=== PATIENT | female | born 1985 | race Caucasian/White ===

== ENCOUNTER 2019-09-10 23:45 | Emergency (ER) | payer BC ==
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
[2019-09-11 00:29] LABS: CHLORIDE,CL 103 mEq/L (98-106); SODIUM,NA 139 mEq/L (136-145)
[2019-09-11] MEDS: Ketorolac 60 MG/2 ML SDV IM ONE (00:31)
[2019-09-11] MEDS: Ondansetron 4 MG Tab.DIS PO ONE (00:33)
[2019-09-11] MEDS: Iopamidol 755 Mg/ML 100 ML Bottle IVPUSH ONE (01:03)
[2019-09-11] MEDS: cefTRIAXone 1 GM Vial IVPUSH SCH (01:47)
[2019-09-11] MEDS: fentaNYL 100 MCG/2 ML SDV IVPUSH ONE (01:52)
== END 2019-09-11 02:20 ==
LOC: CC.ED 23:45
DX: K35.30 Acute appendicitis with localized peritonitis, without perforation or gangrene (principal); Z88.1 Allergy status to other antibiotic agents
CPT/HCPCS: 36415; 74177; 80053; 81003; 81025; 82150; 85025; 86140; 96372; 96374; 99285-25; A9270-GY; J0696; J1885; J3010; Q9967